=== PATIENT | female | born 2000 | race Caucasian/White ===

== ENCOUNTER 2021-09-11 23:40 | Emergency (ER) | payer BC ==
[~2021-09-11] VITALS: Ht 160 cm; Wt 63.6 kg
[2021-09-12 01:33] VITALS: BP 105/71; PULSE 77
== END 2021-09-12 01:43 | disposition home or self-care (01) ==
LOC: COL.ER 23:40
DX: S01.81XA Laceration without foreign body of other part of head, initial encounter (principal); S01.01XA Laceration without foreign body of scalp, initial encounter; W01.198A Fall on same level from slipping, tripping and stumbling with subsequent striking against other object, initial encounter; Y93.01 Activity, walking, marching and hiking; Y92.009 Unspecified place in unspecified non-institutional (private) residence as the place of occurrence of the external cause